=== PATIENT | male | born 1970 | race Caucasian/White ===

== ENCOUNTER 2023-07-22 08:04 | Day surgery (SDC) | payer OTHER, SELFPAY ==
--- NOTE | 2023-07-22 | PATH_ITS ---
[facility] Accession Number: [id number] No. of containers..03 Tissue . 01 Material submitted: . PART A: duodenum - DUODENUM PART B: gastrointestinal site - ANTRUM PART C: esophagus - MID ESOPHAGUS . 01 Diagnosis: A. DUODENUM, BIOPSY: Duodenal mucosa with no diagnostic abnormality. Negative for active inflammation, features of sprue, dysplasia, or malignancy. . B. STOMACH, ANTRUM, BIOPSY: Antral mucosa with mild chronic gastritis. Negative for Helicobacter by immunohistochemistry. Negative for intestinal metaplasia. Negative for dysplasia and malignancy. . C. MID ESOPHAGUS, BIOPSY: Squamous epithelium with no diagnostic abnormality. Intraepithelial eosinophils are not increased. Negative for dysplasia and malignancy. [facility] 07/24/2023 1443 Local . 01 Electronically signed: . Elisa Vera MD, Pathologist NPI- [id number] . 01 Gross description: . Part A: DUODENUM: Received in formalin are 3 fragment(s) of brandon, soft tissue measuring 0.1 x 0.1 x 0.1 cm to 0.3 x 0.3 x 0.3 cm submitted entirely in 1 cassette(s) Part B: ANTRUM: Received in formalin is 1 fragment(s) of brandon, soft tissue measuring 0.4 x 0.3 x 0.2 cm submitted entirely in 1 cassette(s) Part C: MID ESOPHAGUS: Received in formalin is 1 fragment(s) of brandon, soft tissue measuring 0.3 x 0.2 x 0.1 cm submitted entirely in 1 cassette(s) /ANGY 07/23/2023 2215 Local . 01 Microscopic: . B. An immunohistochemical stain was performed to evaluate for Helicobacter organisms and is negative. The control stain showed appropriate reactivity. . * This test was developed and its performance characteristics determined by [facility]. It has not been cleared or approved by the [place]. Food and Drug Administration. The FDA has determined that such clearance or approval is not necessary. This test is used for clinical purposes. It should not be regarded as investigational or for research. . 01 Pathologist provided ICD-10: R63.4, R09.89 . 01 CPT . 503590, 835316, 273153, M40506 Specimen Comment: A courtesy copy of this report has been sent to [phone] Performed at: 01 [facility] [address] [place] [address] [id number] MD Oliverio Morales MD Phone: [phone]
[2023-07-22 08:21] VITALS: BP 150/87; PULSE 72; RESP 16; TEMP 36.3; O2SAT 97
[2023-07-22] MEDS: LACTATED RINGERS 1,000 ML 42 ML IV (08:44)
--- NOTE | 2023-07-22 08:50 | P.HP_ITS ---
History of Present Illness History of Present Illness Date Patient Seen: 07/22/23 Time Patient Seen: 08:50 Chief complaint: SDC Narrative: I reviewed the note by Dr. Joseph. No significant changes. Patient denies any dysphagia to food. Occasionally he struggles when he gulps water too fast. [facility] Medical History Diabetes Social History Smoking Status: Current some day smoker alcohol intake: current Meds Home Medications and Allergies Allergies Allergy/AdvReac Type Severity Reaction Status Date / Time No Known Allergies Allergy Verified 07/22/23 08:24 Review of Systems Review of Systems ROS: Yes All systems reviewed with the patient and are negative except as otherwise documented Exam Vital Signs (past 8 hours): - 07/22/23 08:21 Temperature 97.3 F L Pulse Rate 72 Respiratory Rate 16 Blood Pressure 150/87 H Pulse Oximetry 97 Oxygen Delivery Method Room Air Oxygen Delivery Method Room Air Const General: cooperative HENMT Head: normal to inspection Eyes General: appearance normal, both eyes and all related structures Neck Neck: normal visual inspection Chest Chest: normal inspection of the chest Resp Effort & Inspection: normal respiratory effort Cardio Rate: regular rate GI Inspection: normal to inspection Skin General: no rashes or lesions noted Neuro General: patient alert and patient awake Extrem General: normal to inspection and no pedal edema Psych Appearance: grossly normal Assessment & Plan Assessment & Plan narrative: 53-year-old male with abnormal imaging of the esophagus. There was some dysphagia to water at times. Diagnostic EGD is pursued today.
--- NOTE | 2023-07-22 08:52 | PM.PREOP ---
Pre-operative Note Interval Note History & Physical reviewed/Exam performed by Physician: Yes Changes to H&P: No ASA Class (for procedural sedation): II
--- NOTE | 2023-07-22 09:42 | P.OP.EGD_ITS ---
Operative Date/Time/Diagnoses Date of procedure: 07/22/23 Time of procedure: 09:42 Pre-op diagnosis: Abnormal imaging, history of weight loss, dysphagia to water at times. Post-op diagnosis: same Procedure & Clinicians Study performed: EGD with biopsies Same procedure as scheduled: Yes Indications: Abnormal imaging, history of weight loss, dysphagia to water at times. Surgeon: Chrali Bates Procedure Notes SCOAP/Timeout: Done Procedure in detail: After the risks and benefits were explained, written and verbal informed consent was obtained. The patient was brought into the procedure room and placed into the left lateral decubitus position. Please see anesthesia notes for sedation details. The scope was introduced into the mouth through the bite block and advanced under direct visualization to the 2nd portion of the duodenum. The scope was slowly withdrawn carefully examining the mucosa for any defects or lesions. Retroflexed views were accomplished in the stomach. The stomach was decompressed, the scope was then removed from the patient who tolerated the procedure well. Sedation minutes: 12 Complications: none Impression: 1. Duodenal: This was visually normal from the bulb through to the 2nd portion. Random biopsies were taken for exclusion of celiac considering the history of some weight loss. 2. Stomach: There was minimal erosive change in the region of the antrum. No ulcers no outlet obstruction no masses. Biopsy was taken from the antrum for exclusion of H pylori or other pathology. Retroflexed views of the LES were unremarkable. 3. Esophagus: The squamocolumnar junction correlated with the top of the gastric folds. GEJ was at about 41 cm from the incisors. LA grade a erosive e sophagitis was present. I did not appreciate any mass lesion no stricture nor any other overt pathology throughout the esophagus to account for the imaging findings and or swallowing challenges. Nevertheless a couple of small biopsies were taken from the midesophagus to exclude eosinophilic infiltration. Endoscopic diagnosis: 1. LA grade A erosive esophagitis 2. Erosive gastropathy 3. Otherwise visually unremarkable EGD Post-procedure Plan for aftercare: 1. Await histopathology 2. Minimize NSAIDs. 3. Consider an [id number] anti-reflux approach with 20 mg Pepcid daily. Disposition: PACU
[2023-07-22 09:44] VITALS: BP 103/68; PULSE 68; RESP 16; TEMP 36.3; O2SAT 97
[2023-07-22 09:49] VITALS: BP 112/72; PULSE 65; RESP 16; O2SAT 97
== END 2023-07-22 10:02 | disposition home or self-care (01) ==
PROVIDERS: PCP Family Medicine; Referring Provider Internal Medicine Gastroenterology; Visit Provider Internal Medicine Gastroenterology
PROC: 0DJ08ZZ Inspection of Upper Intestinal Tract, Via Natural or Artificial Opening Endoscopic (ICD-10-PCS; CPT 43235; principal; 2023-07-22 09:00)
DX: R13.10 Dysphagia, unspecified (principal); R63.4 Abnormal weight loss; R93.3 Abnormal findings on diagnostic imaging of other parts of digestive tract; K20.80 Other esophagitis without bleeding; K29.50 Unspecified chronic gastritis without bleeding
CPT/HCPCS: 43239; J2704